=== PATIENT | female | born 1975 ===

== ENCOUNTER 2020-11-09 13:23 | Outpatient (CLI) | payer OTHER ==
--- NOTE | 2020-11-09 17:51 | Mammography Report ---
DIGITAL DIAGNOSTIC MAMMOGRAM WITH CAD , 11/09/2020 CLINICAL INFORMATION / INDICATION: The patient has a history of right breast mass. She reports genera lized breast pain. TECHNIQUE: Digital bilateral mammographic imaging was performed. This examination was interpreted with the benefit of Computer-aided Detection analysis. COMPARISON: Right mammogram, 11/08/2019 FINDINGS: Breast Density: The breasts are extremely dense, which lowers the sensitivity of mammography. No dominant mass, suspicious calcifications or architectural distortion in the left breast. There is a circumscribed 3 cm oval nodular density within the right breast at the 3:00 position poste rior depth. This contains a biopsy clip. IMPRESSION: 1. Circumscribed right breast mass containing a biopsy clip at the 3:00 position. It is difficult to determine if this mass has changed in size compared to the prior mammogram because of the patient's d ense breast tissue. Please correlate with patient's clinical circumstances and previous biopsy result s. Please note that a assistant quality manager was not available for ultrasound at the time of the patient's visit and therefore ultrasound could not be performed. Follow up recommendation: Clinical exam BI-RADS Category 2: Benign. A "normal" or negative report should not discourage follow up or biopsy of a clinically significant f inding. A written summary of these findings will be mailed to the patient. The patient will be entered into a mammography reporting system which will generate a reminder letter for the patient's next appointmen t at the appropriate interval. According to the [employer], yearly mammograms are recommended starting at age 40 and continuing as long as a woman is in good health. Breast MRI is recommended for women with an kaylah roximately 20-25% or greater lifetime risk of breast cancer, including women with a strong family his tory of breast or ovarian cancer and women who have been treated for Hodgkin's disease. Signer Name: Felicitas Porras MD Signed: 11/09/2020 5:47 PM Workstation Name: [id number]
== END 2020-11-09 13:24 | disposition home or self-care (01) ==
LOC: SPVWC 13:23
PROVIDERS: ATTEND Surgery
DX: N63.12 Unspecified lump in the right breast, upper inner quadrant (principal); N60.21 Fibroadenosis of right breast; N60.22 Fibroadenosis of left breast
CPT/HCPCS: 77066

== ENCOUNTER 2021-02-14 08:42 | Outpatient (CLI) | payer OTHER ==
--- NOTE | 2021-02-16 07:55 | Ultrasound Report ---
EXAMINATION: Right Limited Breast Ultrasound, 02/14/2021 INDICATION: The patient reports pain in the superior aspect of the right breast at the 12:00 position. She has a personal history of previous percutaneous biopsy of right breast mass with reportedly benign findings . This is a short-term follow-up. COMPARISON: Ultrasound-guided biopsy, 11/08/2019. Diagnostic mammogram, 11/09/2020. FINDINGS: Targeted ultrasound evaluation was performed of the area of interest. Sonographic evaluati on of the right breast at the 2:00 position 9 cm from the nipple demonstrates a stable appearance of the oval circumscribed wider than tall solid mass measuring 2.8 x 1.3 cm as compared to 3.0 x 1.1 cm on the previous study. There is also a 3.7 cm cyst at the 12:00 position 3 cm from the nipple. IMPRESSION: Follow up recommendation: Clinical exam BI-RADS Category 2: Benign. 1. Stable appearance of previously biopsied solid mass at the 2:00 position as described. 2. Simple cyst measuring 3.7 cm which appears to correspond to the patient's area of pain. Therefore, clinical correlation is recommended. A normal or "negative" report should not preclude biopsy or follow-up of a clinically suspicious find ing. Signer Name: Felicitas Porras MD Signed: 02/14/2021 10:03 AM Workstation Name: [email or web address]
== END 2021-02-14 08:43 | disposition home or self-care (01) ==
LOC: SPVWC 08:42
PROVIDERS: ATTEND Surgery
DX: N63.20 Unspecified lump in the left breast, unspecified quadrant (principal)

== ENCOUNTER 2021-06-27 06:29 | Day surgery (SDC) | payer OTHER ==
[2021-06-19 11:25] LABS: Hematocrit 40.6 % (30.3-42.9); Hemoglobin 14.2 gm/dl (10.1-14.3); Mean Corpuscular HGB Conc 35 % (30-34); Mean Corpuscular Volume 93 fl (79-97); Platelet Count 279 K/mm3 (140-440); Red Blood Count 4.38 M/mm3 (3.65-5.03); Red Cell Distribution Width 13.1 % (13.2-15.2)
[~2021-06-27 06:29] MED LIST: ceFAZolin/STERILE WATER 2 GM/20 ML SYRINGE IV NR
[2021-06-27] MEDS ORDERED: LACTATED RINGERS 1,000 ML IV SCH (06:30)
[2021-06-27] MEDS ORDERED: BACTERIOSTATIC SODIUM CHLORIDE 0.9% 30 ML VIAL INFILTRATI ONE (07:04)
--- NOTE | 2021-06-27 07:15 | Anesthesia Consultation ---
Anesthesia Consult and Med Hx Date of service: 06/27/21 - Airway Anesthetic Teeth Evaluation: Good ROM Head & Neck: Adequate Mental/Hyoid Distance: Adequate Mallampati Class: Class II Intubation Access Assessment: Good - Pulmonary Exam CTA: Yes - Cardiac Exam Cardiac Exam: RRR - Pre-Operative Health Status ASA Pre-Surgery Classification: ASA2 Proposed Anesthetic Plan: General - Pre-Anesthesia Comment Pre-Anesthesia Comments: acid reflux controlled - Pulmonary Hx Smoking: No Hx Sleep Apnea: No - Central Nervous System Hx Psychiatric Problems: No - Other Systems Hx Alcohol Use: Yes (OCCASIONALLY) Hx Substance Use: No Hx Cancer: No
--- NOTE | 2021-06-27 07:18 | Anesthesia Day of Surgery ---
Anesthesia Day of Surgery - Day of Surgery Patient Examined: Yes Patient H&P Reviewed: Yes Patient is NPO: Yes
[2021-06-27] MEDS ORDERED: ONDANSETRON 4 MG/2 ML INJ IV PRN (07:19)
[2021-06-27] MEDS ORDERED: HYDROmorphone 1 MG/1 ML INJ IV PRN ×2 (07:19)
[2021-06-27] MEDS ORDERED: BUPIVACAINE/PF (0.25%) 2.5 MG/ML 30 ML VIAL INFILTRATI ONE ×3 (07:37→09:23)
[2021-06-27] MEDS ORDERED: LIDOCAINE (1%) 10 MG/1 ML VIAL 20 ML MDV ONE (07:37)
[2021-06-27] MEDS ORDERED: propofoL 200 MG/20 ML VIAL IV ONE (07:42)
[2021-06-27] MEDS ORDERED: LIDOCAINE MPF (2%) 20 MG/1 ML VIAL 5 ML ONE (07:42)
[2021-06-27] MEDS ORDERED: HYDROmorphone 1 MG/1 ML INJ ONE (07:42)
[2021-06-27] MEDS ORDERED: ONDANSETRON 4 MG/2 ML INJ ONE (08:39)
[2021-06-27] MEDS ORDERED: dexAMETHasone 20 MG/5 ML VIAL ONE (08:39)
[2021-06-27] MEDS ORDERED: LIDOCAINE (1%) 10 MG/1 ML VIAL 20 ML MDV INFILTRATI ONE ×2 (09:24)
--- NOTE | 2021-06-27 10:18 | Short Stay Summary ---
Short Stay Documentation Date of service: 06/27/21 - History H&P: obtained from office - Allergies and Medications Current Medications: Allergies No Known Allergies Allergy (Verified 06/13/21 15:17) Home Medications Medication Instructions Recorded Confirmed Last Taken Type No Known Home Medications [No 06/13/21 06/13/21 Unknown History Reported Home Medications] Active Medications Cefazolin Sodium (Cefazolin/Sterile Water 2 Gm/20 Ml Syringe) 2 gm IV PREOP NR Stop: 06/27/21 16:00 Hydromorphone HCl (Hydromorphone 1 Mg/1 Ml Inj) 0.25 mg IV Q10MIN PRN PRN Reason: Pain, Moderate (4-6) Stop: 06/27/21 20:00 Hydromorphone HCl (Hydromorphone 1 Mg/1 Ml Inj) 0.5 mg IV Q10MIN PRN PRN Reason: Pain , Severe (7-10) Stop: 06/27/21 20:00 Lactated Ringer's (Lactated Ringers) 1,000 mls @ 100 mls/hr IV DIRECT BALDEMAR Last Admin: 06/27/21 07:21 Dose: 100 mls/hr Documented by: Ondansetron HCl (Ondansetron 4 Mg/2 Ml Inj) 4 mg IV ONCE PRN PRN Reason: Nausea And Vomiting Stop: 06/27/21 18:00 - Brief post op/procedure progress note Date of procedure: 06/27/21 Pre-op diagnosis: Right breast mass upper inner quadrant and complex cysts upper outer quadra Post-op diagnosis: same Procedure: Right breast mass upper inner quadrant complex cysts upper outer quadrant Anesthesia: GETA Findings: [id number] aspirated 12:00 position position with complete resolution and right breast mass upper inner quadrant excision Surgeon: LAURENCE GONZALEZ Estimated blood loss: minimal Pathology: list Specimen disposition: to lab Condition: stable - Disposition Condition at discharge: Good Disposition: 01 HOME / SELF CARE / HOMELESS Short Stay Discharge Plan Activity: other (no heavy lifting) Diet: regular Follow up with: LAURENCE GONZALEZ MD [Staff Physician] - 7 Days Forms: [facility]
--- NOTE | 2021-06-27 10:53 | Mammography Report ---
BREAST SPECIMEN RADIOGRAPH HISTORY: Lumpectomy FINDINGS/IMPRESSION: The submitted radiograph or radiographs demonstrate(s) the presence of a biopsy marker within an oval soft tissue mass. No wire is present. Signer Name: Nazanin Wall MD Signed: 06/27/2021 10:49 AM Workstation Name: [id number]
[2021-06-27] MEDS ORDERED: PROMETHAZINE 25 MG RECT SUPP PR SCH (11:00)
[2021-06-27] MEDS ORDERED: PROMETHAZINE 25 MG RECT SUPP PR ONE (11:52)
[2021-06-27 14:23] VITALS: BP 127/80
--- NOTE | 2021-06-27 15:35 | Post Anesthesia Evaluation ---
- Post Anesthesia Evaluation Patient Participated: Yes Airway Patent: Yes Stable Respiratory Function: Yes Nausea/Vomiting: Yes Temp > 96.8F: Yes Pain Manageable: Yes Adequeate Hydration: Yes Anesthesia Complications: No Block Receding Appropriately: Not Applicable Patient on Ventilator: No
--- NOTE | 2021-07-04 10:22 | Operative Report ---
Operative Report Operative Report: Operative Report: June 27, 2021 Preoperative diagnosis: Right breast mass of the upper inner quadrant and complex cysts of the upper outer quadrant Postoperative diagnosis: Same Procedure: Right breast mass excisional biopsy of the upper inner quadrant and ultrasound guided cyst aspiration of the upper outer quadrant Surgeon: Morena Brenner MD Seafood Farmer: Eder Ribeiro MD Anesthesia: General Findings: Right mass with clip present within radiograph specimen and 2 complex cysts aspiration with complete resolution Complications: None EBL: Minimal (less than 25 cc) Disposition: PACU in good condition Indications for operative procedure: This is a 46 year old lady with known right breast cysts and right breast mass of the upper inner quadrant. She recently underwent a right breast ultrasound-guided needle core biopsy of right breast mass as the 2 o'clock position 9 cm from the nipple January 2020 with findings of a fibroepithelial lesion and recommendation for surgical excision for a definitive diagnosis. Patient initially declined surgery and now wishes to p roceed with excision. Patient also with 2 large right breast cyst with symptomatic pain at the 12 o'clock position 3 cm from the nipple and she wishes to proceed with aspiration as well, cysts 3 cm. Patient understands pending final pathology additional surgery may be indicated. She wished to proceed with the above procedure. Procedure in detail: Patient was then taken to the operating room. Gen. anesthesia was administered. Right breast and axilla were prepped and draped in the normal sterile operative fashion. Timeout was performed. Ultrasound was used to identify the area known large complex right breast cysts at the 12 o'clock position 3 cm from the nipple and right breast mass at the 2 o'clock position 9 cm from the nipple. Attention was then taken towards the right breast. Using the ultrasound, 2 large right breast cysts were identified at the 12 o'clock position 3 cm from the nipple and using an 18-gauge needle cysts were aspirated with complete resolution and typical cysts contents and cytology not sent. Attention was then taken towards the known right breast mass at the 2 o'clock position 9 cm from the nipple. A periareolar incision was made with a 15 blade knife and dissection taken down to subcutaneous tissues. First began raising of the superior flap with dissection taken down posteriorly past the mass, followed by raising of the inferior flap, medial flap and lateral flap with all flaps taken down posteriorly past the known mass. The breast area of concern was appropriately removed posteriorly with the aid of the Bovie cautery. Ultrasound was used as well with findings of mass was adequately excised. Specimen was marked and then sent to pathology and radiology; radiograph specimen with mass and clip present. Breast cavity was irrigated and hemostasis was obtained. The posterior deep breast tissues were approximated and closed using interrupted 3-0 Vicryl. The subcutaneous tissues were approximated and closed using interrupted 3-0 Vicryl followed by closing of the skin with a running 4-0 Monocryl and skin affix. The patient tolerated surgery very well and she was awaken from anesthesia without any complication and transported to PACU in good condition.
== END 2021-06-27 13:20 | disposition home or self-care (01) ==
LOC: OR 06:29
PROVIDERS: ATTEND Surgery
DX: N60.81 Other benign mammary dysplasias of right breast (principal); N60.01 Solitary cyst of right breast; R92.8 Other abnormal and inconclusive findings on diagnostic imaging of breast; N63.12 Unspecified lump in the right breast, upper inner quadrant; Z79.899 Other long term (current) drug therapy; Z90.710 Acquired absence of both cervix and uterus; Z98.890 Other specified postprocedural states
CPT/HCPCS: 19120; 36415; 76098; 85027; 88305; J0690; J1100; J1170; J2405; J2704; J7120; U0003; 88307